=== PATIENT | female | born 1995 | race Caucasian/White ===

== ENCOUNTER 2022-06-10 16:34 | Day surgery (SDC) | payer OTHER, SELFPAY ==
--- NOTE | ~2022-06-10 | US_ITS ---
EXAMINATION: US OBSTETRICAL CLINICAL INFORMATION: Vaginal bleeding, positive test COMPARISON: None. TECHNIQUE: Real-time ultrasound was transverse abdominal and transvaginal imaging.. FINDINGS: The uterus is neutral in position. The endometrium measures 1.1 cm in thickness. There is no intrauterine gestational sac. The right ovary measures 3.9 x 1.8 x 3.9 cm, and the left ovary measures 3.2 x 3.5 x 2.1 cm. Left ovary is remarkable for an involuting hemorrhagic corpus luteum and ovaries are otherwise unremarkable in appearance. Adjacent to the right ovary is a 2.5 x 1.8 x 2.0 cm adnexal mass with internal vascularity suspicious for a ruptured ectopic . Other significant findings: Small amount of complex free fluid in the pelvis. US/US OB pelvic and transvaginal IMPRESSION: Small volume of complex free fluid in the pelvis raising suspicion for hemoperitoneum with a 2.5 cm vascular right adnexal mass suspicious for ruptured tubal ectopic . No intrauterine gestational sac is identified. These critical results were discussed with Dr. Ennis by telephone at 06/10/2022 8:48 PM and it was ascertained that the content and urgency of the report was understood at the time of direct communication.
[2022-06-10 16:38] VITALS: BP 145/76; PULSE 114; RESP 20; TEMP 36.7; O2SAT 100; BMI 29.4
--- NOTE | 2022-06-10 16:41 | ED.GENADULT ---
HPI - General Adult General Chief complaint: Vaginal Bleeding <VELASQUEZ Sherman - Last Filed: 06/10/22 16:41> Stated complaint: miscarriage/ month of bleeding/discomfort <VELASQUEZ Sherman - Last Filed: 06/10/22 16:41> Time Seen by Provider: 06/10/22 17:37 <VELASQUEZ Sherman - Last Filed: 06/10/22 16:41> Source: patient <Pepe Reed MD - Last Filed: 06/10/22 23:50> Mode of arrival: ambulatory <Pepe Reed MD - Last Filed: 06/10/22 23:50> Limitations: no limitations <Pepe Reed MD - Last Filed: 06/10/22 23:50> History of Present Illness HPI narrative: Patient usually have regular periods had last menstrual period end of the March lasted for few days. Started having vaginal bleeding again on 05/17 but continued small amount almost every day got heavier since last night with suprapubic discomfort patient check for the was positive. Patient denies any nausea vomiting breast tenderness. This is the 1st for the patient. No fever no chills no urinary complaints <Pepe Reed MD - Last Filed: 06/10/22 23:50> Related Data Allergies/adverse reactions: Allergies Allergy/AdvReac Type Severity Reaction Status Date / Time No Known Allergies Allergy Unverified 01/29/20 16:30 <VELASQUEZ Sherman - Last Filed: 06/10/22 16:41> Review of Systems Review of Systems: Yes all other systems are reviewed and are negative <Pepe Reed MD - Last Filed: 06/10/22 23:50> [facility] Social History Social History: Social History Smoked in Last 30 Days: No Use of substances other than those prescribed or required for medical reasons: Yes Substance Use Type: Marijuana Advance Directives: No Advance Directives Information Provided: No Patient : Yes <VELASQUEZ Sherman - Last Filed: 06/10/22 16:41> Physical Exam ED Vital Signs: Vital Signs - 24 hr 06/10/22 16:38 06/10/22 18:00 06/10/22 22:21 Temperature 98.0 F 98.5 F Pulse Rate 114 H 96 106 H Respiratory Rate 20 16 16 Blood Pressure 145/76 H 116/72 126/77 Pulse Oximetry 100 100 100 Oxygen Delivery Method Room Air Room Air BMI result Body Mass Index 29.4 <VELASQUEZ Sherman - Last Filed: 06/10/22 16:41> Vital Signs - 24 hr 06/10/22 16:38 06/10/22 18:00 06/10/22 22:21 Temperature 98.0 F 98.5 F Pulse Rate 114 H 96 106 H Respiratory Rate 20 16 16 Blood Pressure 145/76 H 116/72 126/77 Pulse Oximetry 100 100 100 Oxygen Delivery Method Room Air Room Air BMI result Body Mass Index 29.4 <Pepe Reed MD - Last Filed: 06/10/22 23:50> Appearance: Alert. Oriented X3. No acute distress. Eyes: No pallor or icterus ENT: Pharynx normal. Oral Mucosa moist Neck: Normal inspection. Neck supple. CVS: Normal heart rate and rhythm. Pulses normal. Respiratory: No respiratory distress. Equal air entry bilateral, no wheezing/rales/rhonchi Abdomen: Soft mild suprapubic tenderness no rebound tenderness or guarding Bowel sounds are present, no mass palpable, no CVA tenderness Skin: Skin warm and dry. Normal skin color. Normal skin turgor. Extremities: No lower extremity edema. No calf tenderness Neuro: Oriented X 3. No motor deficit. <Pepe Reed MD - Last Filed: 06/10/22 23:50> Course Course Course Narrative: RME performed by Gisel Olivas PA-C. Patient is a 26 year old female presenting to the emergency department with vaginal bleeding. Patient states that about a month ago she had a positive test and was bleeding. Patient states she assumed she was having a miscarriage then and has not had any follow up. Labs and imaging ordered. <VELASQUEZ Sherman - Last Filed: 06/10/22 16:41> Medical Decision Making Medical Decision Making [facility] Narrative: ;30 Patient with mild suprapubic tenderness with hCG of 430 ultrasound showed right adnexal mass with free fluid likely ruptured tubal patient H&H and vital stable case discussed Dr. Albino LIGHT, will come evaluate the patient 2200. Patient seen with Dr. Albino LIGHT will take patient to OR for laparoscopic laparotomy <Pepe Reed MD - Last Filed: 06/10/22 23:50> Lab Data MDM Lab Attestation statement: I reviewed the patient's lab results. <Pepe Reed MD - Last Filed: 06/10/22 23:50> Result Diagrams: 06/10/22 17:00 06/10/22 17:00 <VELASQUEZ Sherman - Last Filed: 06/10/22 16:41> Labs: Lab Results 06/10/22 06/10/22 06/10/22 Range/Units 17:00 17:00 17:00 WBC 8.8 (4.8-10.8) X10*3/uL RBC 3.94 L (4.20-5.50) X10*6/uL Hgb 12.2 (12.0-16.0) g/dl Hct 35.9 L (37.0-47.0) % MCV 91.1 (80.0-98.0) fL MCH 31.0 (27.0-33.0) pg MCHC 34.0 (31.0-35.0) g/dl RDW 12.5 (11.0-16.0) % Plt Count 261 (160-400) X10*3/uL MPV 10.2 (9.4-12.3) fL Immature Gran % (Auto) 0.8 H (0.0-0.4) % Neut % (Auto) 57.4 (45-73) % Lymph % (Auto) 34.9 (20-40) % [place] % (Auto) 5.9 (2-11) % Eos % (Auto) 0.3 (0-4) % Baso % (Auto) 0.7 (0-2) % Lymph # (Auto) 3.1 (1.2-4.9) X10*3/uL [place] # (Auto) 0.5 (0.1-1.2) X10*3/uL Eos # (Auto) 0.0 (0.0-0.4) X10*3/uL Baso # (Auto) 0.1 (0.0-0.2) X10*3/uL Abs Immat Gran (auto) 0.07 H (0.00-0.03) X10*3/uL Absolute Neuts (auto) 5.0 (2.0-8.3) x10*3/uL Absolute Nucleated RBC 0.000 (0.0-0.012) X10*3/uL Nucleated RBC % (auto) 0.0 (0.0-0.2) /100WBC PT 11.1 (10.0-13.1) SEC INR 1.0 (0.9-1.1) APTT 30.2 (26.0-36.4) SEC Sodium 142 (135-145) mmol/L Potassium 4.1 (3.3-5.1) mmol/L Chloride 106 (96-108) mmol/L Carbon Dioxide 27 (22-29) mmol/L Anion Gap 13 (12-20) BUN 11 (9-16) mg/dL Creatinine 0.85 (0.5-1.4) mg/dL Estim Creat Clear Calc 105.9 Estimated GFR > 60 Random Glucose 97 (60-115) mg/dL Calcium 9.9 (8.4-10.2) mg/dL Magnesium 1.9 (1.6-2.6) mg/dL Total Bilirubin 0.4 (0.0-1.0) mg/dL AST 16 (5-31) U/L ALT 13 (0-31) U/L Alkaline Phosphatase 57 (39-117) U/L Total Protein 7.4 (6.5-8.0) g/dL Albumin 4.6 (3.5-5.0) g/dL Beta HCG, Quant 430 mIU/mL Urine Color Urine Appearance Urine pH (5.0-9.0) Ur Specific [place] (1.005-1.025) Urine Protein (Neg-Trace) mg/dL Urine Glucose (UA) (Negative) mg/dL Urine Ketones (Negative) mg/dL Urine Blood (Negative) Urine Nitrite (Negative) Ur Leukocyte Esterase (Negative) Urine RBC (0-2) /HPF Urine WBC (0-5) /HPF Ur Squamous Epith Cells (0-2) /HPF Urine Bacteria (None Seen) Hyaline Casts (0-2) /LPF COVID-19 (SAMEER) (Negative) COVID-19 Clin Com Blood Type Antibody Screen 06/10/22 06/10/22 06/10/22 Range/Units 18:02 21:39 21:58 WBC (4.8-10.8) X10*3/uL RBC (4.20-5.50) X10*6/uL Hgb (12.0-16.0) g/dl Hct (37.0-47.0) % MCV (80.0-98.0) fL MCH (27.0-33.0) pg MCHC (31.0-35.0) g/dl RDW (11.0-16.0) % Plt Count (160-400) X10*3/uL MPV (9.4-12.3) fL Immature Gran % (Auto) (0.0-0.4) % Neut % (Auto) (45-73) % Lymph % (Auto) (20-40) % [place] % (Auto) (2-11) % Eos % (Auto) (0-4) % Baso % (Auto) (0-2) % Lymph # (Auto) (1.2-4.9) X10*3/uL [place] # (Auto) (0.1-1.2) X10*3/uL Eos # (Auto) (0.0-0.4) X10*3/uL Baso # (Auto) (0.0-0.2) X10*3/uL Abs Immat Gran (auto) (0.00-0.03) X10*3/uL Absolute Neuts (auto) (2.0-8.3) x10*3/uL Absolute Nucleated RBC (0.0-0.012) X10*3/uL Nucleated RBC % (auto) (0.0-0.2) /100WBC PT (10.0-13.1) SEC INR (0.9-1.1) APTT (26.0-36.4) SEC Sodium (135-145) mmol/L Potassium (3.3-5.1) mmol/L Chloride (96-108) mmol/L Carbon Dioxide (22-29) mmol/L Anion Gap (12-20) BUN (9-16) mg/dL Creatinine (0.5-1.4) mg/dL Estim Creat Clear Calc Estimated GFR Random Glucose (60-115) mg/dL Calcium (8.4-10.2) mg/dL Magnesium (1.6-2.6) mg/dL Total Bilirubin (0.0-1.0) mg/dL AST (5-31) U/L ALT (0-31) U/L Alkaline Phosphatase (39-117) U/L Total Protein (6.5-8.0) g/dL Albumin (3.5-5.0) g/dL Beta HCG, Quant mIU/mL Urine Color Other A Urine Appearance Clear Urine pH 6.5 (5.0-9.0) Ur Specific [place] 1.010 (1.005-1.025) Urine Protein Trace (Neg-Trace) mg/dL Urine Glucose (UA) Negative (Negative) mg/dL Urine Ketones 15 (Negative) mg/dL Urine Blood Large (3+) H (Negative) Urine Nitrite Negative (Negative) Ur Leukocyte Esterase Trace H (Negative) Urine RBC >20 H (0-2) /HPF Urine WBC 0-5 (0-5) /HPF Ur Squamous Epith Cells 0-2 (0-2) /HPF Urine Bacteria None Seen (None Seen) Hyaline Casts 0-2 (0-2) /LPF COVID-19 (SAMEER) Negative (Negative) COVID-19 Clin Com See Note Blood Type O Positive Antibody Screen NEGATIVE <VELASQUEZ Sherman - Last Filed: 06/10/22 16:41> Lab Results 06/10/22 06/10/22 06/10/22 Range/Units 17:00 17:00 17:00 WBC 8.8 (4.8-10.8) X10*3/uL RBC 3.94 L (4.20-5.50) X10*6/uL Hgb 12.2 (12.0-16.0) g/dl Hct 35.9 L (37.0-47.0) % MCV 91.1 (80.0-98.0) fL MCH 31.0 (27.0-33.0) pg MCHC 34.0 (31.0-35.0) g/dl RDW 12.5 (11.0-16.0) % Plt Count 261 (160-400) X10*3/uL MPV 10.2 (9.4-12.3) fL Immature Gran % (Auto) 0.8 H (0.0-0.4) % Neut % (Auto) 57.4 (45-73) % Lymph % (Auto) 34.9 (20-40) % [place] % (Auto) 5.9 (2-11) % Eos % (Auto) 0.3 (0-4) % Baso % (Auto) 0.7 (0-2) % Lymph # (Auto) 3.1 (1.2-4.9) X10*3/uL [place] # (Auto) 0.5 (0.1-1.2) X10*3/uL Eos # (Auto) 0.0 (0.0-0.4) X10*3/uL Baso # (Auto) 0.1 (0.0-0.2) X10*3/uL Abs Immat Gran (auto) 0.07 H (0.00-0.03) X10*3/uL Absolute Neuts (auto) 5.0 (2.0-8.3) x10*3/uL Absolute Nucleated RBC 0.000 (0.0-0.012) X10*3/uL Nucleated RBC % (auto) 0.0 (0.0-0.2) /100WBC PT 11.1 (10.0-13.1) SEC INR 1.0 (0.9-1.1) APTT 30.2 (26.0-36.4) SEC Sodium 142 (135-145) mmol/L Potassium 4.1 (3.3-5.1) mmol/L Chloride 106 (96-108) mmol/L Carbon Dioxide 27 (22-29) mmol/L Anion Gap 13 (12-20) BUN 11 (9-16) mg/dL Creatinine 0.85 (0.5-1.4) mg/dL Estim Creat Clear Calc 105.9 Estimated GFR > 60 Random Glucose 97 (60-115) mg/dL Calcium 9.9 (8.4-10.2) mg/dL Magnesium 1.9 (1.6-2.6) mg/dL Total Bilirubin 0.4 (0.0-1.0) mg/dL AST 16 (5-31) U/L ALT 13 (0-31) U/L Alkaline Phosphatase 57 (39-117) U/L Total Protein 7.4 (6.5-8.0) g/dL Albumin 4.6 (3.5-5.0) g/dL Beta HCG, Quant 430 mIU/mL Urine Color Urine Appearance Urine pH (5.0-9.0) Ur Specific [place] (1.005-1.025) Urine Protein (Neg-Trace) mg/dL Urine Glucose (UA) (Negative) mg/dL Urine Ketones (Negative) mg/dL Urine Blood (Negative) Urine Nitrite (Negative) Ur Leukocyte Esterase (Negative) Urine RBC (0-2) /HPF Urine WBC (0-5) /HPF Ur Squamous Epith Cells (0-2) /HPF Urine Bacteria (None Seen) Hyaline Casts (0-2) /LPF COVID-19 (SAMEER) (Negative) COVID-19 Clin Com Blood Type Antibody Screen 06/10/22 06/10/22 06/10/22 Range/Units 18:02 21:39 21:58 WBC (4.8-10.8) X10*3/uL RBC (4.20-5.50) X10*6/uL Hgb (12.0-16.0) g/dl Hct (37.0-47.0) % MCV (80.0-98.0) fL MCH (27.0-33.0) pg MCHC (31.0-35.0) g/dl RDW (11.0-16.0) % Plt Count (160-400) X10*3/uL MPV (9.4-12.3) fL Immature Gran % (Auto) (0.0-0.4) % Neut % (Auto) (45-73) % Lymph % (Auto) (20-40) % [place] % (Auto) (2-11) % Eos % (Auto) (0-4) % Baso % (Auto) (0-2) % Lymph # (Auto) (1.2-4.9) X10*3/uL [place] # (Auto) (0.1-1.2) X10*3/uL Eos # (Auto) (0.0-0.4) X10*3/uL Baso # (Auto) (0.0-0.2) X10*3/uL Abs Immat Gran (auto) (0.00-0.03) X10*3/uL Absolute Neuts (auto) (2.0-8.3) x10*3/uL Absolute Nucleated RBC (0.0-0.012) X10*3/uL Nucleated RBC % (auto) (0.0-0.2) /100WBC PT (10.0-13.1) SEC INR (0.9-1.1) APTT (26.0-36.4) SEC Sodium (135-145) mmol/L Potassium (3.3-5.1) mmol/L Chloride (96-108) mmol/L Carbon Dioxide (22-29) mmol/L Anion Gap (12-20) BUN (9-16) mg/dL Creatinine (0.5-1.4) mg/dL Estim Creat Clear Calc Estimated GFR Random Glucose (60-115) mg/dL Calcium (8.4-10.2) mg/dL Magnesium (1.6-2.6) mg/dL Total Bilirubin (0.0-1.0) mg/dL AST (5-31) U/L ALT (0-31) U/L Alkaline Phosphatase (39-117) U/L Total Protein (6.5-8.0) g/dL Albumin (3.5-5.0) g/dL Beta HCG, Quant mIU/mL Urine Color Other A Urine Appearance Clear Urine pH 6.5 (5.0-9.0) Ur Specific [place] 1.010 (1.005-1.025) Urine Protein Trace (Neg-Trace) mg/dL Urine Glucose (UA) Negative (Negative) mg/dL Urine Ketones 15 (Negative) mg/dL Urine Blood Large (3+) H (Negative) Urine Nitrite Negative (Negative) Ur Leukocyte Esterase Trace H (Negative) Urine RBC >20 H (0-2) /HPF Urine WBC 0-5 (0-5) /HPF Ur Squamous Epith Cells 0-2 (0-2) /HPF Urine Bacteria None Seen (None Seen) Hyaline Casts 0-2 (0-2) /LPF COVID-19 (SAMEER) Negative (Negative) COVID-19 Clin Com See Note Blood Type O Positive Antibody Screen NEGATIVE <Pepe Reed MD - Last Filed: 06/10/22 23:50> Radiology Impression Discussion of test interpretation with radiology: I discussed test interpretation with the radiologist <Pepe Reed MD - Last Filed: 06/10/22 23:50> Radiologist Impression: Small volume of complex free fluid in the pelvis raising suspicion for hemoperitoneum with a 2.5 cm vascular right adnexal mass suspicious for ruptured tubal ectopic . No intrauterine gestational sac is identified. ? <Pepe Reed MD - Last Filed: 06/10/22 23:50> Discharge Plan Discharge Clinical Impression: Hemoperitoneum due to rupture of right tubal ectopic <VELASQUEZ Sherman - Last Filed: 06/10/22 16:41> Patient Disposition: Admitted As Inpatient <VELASQUEZ Sherman - Last Filed: 06/10/22 16:41>
[2022-06-10 17:05] LABS: MANUAL DIFF FLAG NO
[2022-06-10 17:19] LABS: Prothrombin Time 11.1 SEC (10.0-13.1)
[2022-06-10 17:22] LABS: Partial Thromboplastin Time 30.2 SEC (26.0-36.4)
[2022-06-10 17:28] LABS: Basophils Absolute Auto 0.1 X10*3/uL (0.0-0.2); Basophils Percent Auto 0.7 % (0-2); Eosinophils Percent Auto 0.3 % (0-4); Hematocrit 35.9 % (37.0-47.0); Hemoglobin 12.2 g/dl (12.0-16.0); Imm Gran Abs Auto 0.07 X10*3/uL (0.00-0.03); Imm Gran Pct Auto 0.8 % (0.0-0.4); Lymphocytes Absolute Auto 3.1 X10*3/uL (1.2-4.9); Lymphocytes Percent Auto 34.9 % (20-40); Mean Corpuscular Volume 91.1 fL (80.0-98.0); Mean Platelet Volume 10.2 fL (9.4-12.3); Monocytes Absolute Auto 0.5 X10*3/uL (0.1-1.2); Monocytes Percent Auto 5.9 % (2-11); Neutrophils Percent Auto 57.4 % (45-73); Platelet Count 261 X10*3/uL (160-400); Red Blood Count 3.94 X10*6/uL (4.20-5.50); Red Cell Distribution Width 12.5 % (11.0-16.0); White Blood Count 8.8 X10*3/uL (4.8-10.8)
[2022-06-10 17:31] LABS: Alanine Aminotransferase 13 U/L (0-31); Albumin Level 4.6 g/dL (3.5-5.0); Alkaline Phosphatase 57 U/L (39-117); Anion Gap 13 (12-20); Aspartate Amino Transferase 16 U/L (5-31); Bilirubin Total 0.4 mg/dL (0.0-1.0); Blood Urea Nitrogen 11 mg/dL (9-16); Calcium 9.9 mg/dL (8.4-10.2); Carbon Dioxide 27 mmol/L (22-29); Chloride 106 mmol/L (96-108); Creatinine Clr Calc Pharmacy 105.9; Estimated Glomerular Filt Rate > 60; Glucose Random 97 mg/dL (60-115); Magnesium 1.9 mg/dL (1.6-2.6); Potassium 4.1 mmol/L (3.3-5.1); Sodium 142 mmol/L (135-145); Total Protein 7.4 g/dL (6.5-8.0)
[2022-06-10 17:32] LABS: HCG Quantitative 430 mIU/mL
[2022-06-10 18:00] VITALS: BP 116/72; PULSE 96; RESP 16; TEMP 36.9; O2SAT 100
--- NOTE | 2022-06-10 18:03 | MHC.EDTECH ---
patient 1800 vitals sign taken ,urine sample send to lab .
[2022-06-10 18:14] LABS: Appearance Urine Clear; Color Urine Other; Glucose Urine UA Negative (Negative); PH 6.5 (5.0-9.0); Urine Blood Large (3+) (Negative)
[2022-06-10 18:15] LABS: Leukocyte Esterase Urine Trace (Negative); Nitrite Urine Negative (Negative); UMIC TRIGGER UACC YES; Urine Ketones 15 mg/dL (Negative); Urine Protein Trace mg/dL (Neg-Trace)
[2022-06-10 18:16] LABS: Bacteria Urine None Seen (None Seen); Hyaline Casts Urine 0-2 /LPF (0-2); RBC Urine >20 /HPF (0-2); Squamous Epithelial Cell Urine 0-2 /HPF (0-2); WBC Urine 0-5 /HPF (0-5)
[2022-06-10 22:15] LABS: COVID-19 Test Negative (Negative); IDNOW Serial# 9DB6401D
[2022-06-10 22:21] VITALS: BP 126/77; PULSE 106; RESP 16; O2SAT 100
--- NOTE | 2022-06-10 22:37 | PM.GYNCN ---
TRANSCRIPTION COORDINATOR - CN: HPI Data of Consult Consult date: 06/10/22 Primary Care Provider: Guero Kirby MD Consult Narrative Narrative: I was consulted on Sarah Appiah who is a 26 year old female presented to emergency room complaining of vaginal bleeding and pelvic cramping more on the right. Patient's LMP was end of March, the patient started having vaginal bleeding early May, had a positive home test , since then she has been having vaginal bleeding associated with pelvic cramping and passage of blood clots. H&H 12.3/35.9, hCG 430, blood type is O-positive cc:: CC: CAFETERIA OR LUNCHROOM CHECKER - Review of Systems Review of Systems ROS Unobtainable: All systems reviewed & are unremarkable except as noted in HPI and below Cardiovascular: Denies Palpatations, Loss of consciousness or Chest pain Respiratory: Denies Cough, Wheezing or Shortness of breath Musculoskeletal: Denies Low back pain Gastrointestinal: Denies Heartburn, Constipation, Diarrhea, Nausea or Vomiting Genitourinary: Denies Pain with urination, Burning with urination or Urinary frequency Neurological: Denies Migranes Psychological: Denies Depression OB PMFSH Social History Social History Substance Use Type: Marijuana Meds Allergies Allergy/AdvReac Type Severity Reaction Status Date / Time No Known Allergies Allergy Unverified 01/29/20 16:30 TRANSCRIPTION COORDINATOR Physical Exam Vitals Vital signs: Temp Pulse Resp BP Pulse Ox O2 Del Method 98.5 F 106 H 16 126/77 100 06/10/22 18:00 06/10/22 22:21 06/10/22 22:21 06/10/22 22:21 06/10/22 22:21 06/10/22 22:21 BMI result Body Mass Index 29.4 Constitutional General Appearance: Healthy appearing, Well-nourished and Well-developed Psychiatric Mood and Affect: active and alert, normal mood and normal affect Skin Appearance: No rashes and No lesions Lungs Respiratory Effort: No intercostal retractions Auscultation: Clear to auscultation Cardiovascular Auscultation: RRR Abdomen Auscultation/Inspection/Palpation: Normal bowel sounds, Non-distended, Tenderness (Right-sided tenderness and minimal regarding) and Guarding Female Genitalia (Pelvic) Bladder/Urethra: Normal meatus Vulva: No lesions Vagina: Nontender Cervix: Cervical motion tenderness Uterus: Normal size and Nontender Adnexa/Parametria: Adnexal Tenderness: Right and Adnexal Mass: Right TRANSCRIPTION COORDINATOR - Results Labs 06/10/22 17:00 06/10/22 17:00 Labs: Short CBC 06/10/22 Range/Units 17:00 WBC 8.8 (4.8-10.8) X10*3/uL Hgb 12.2 (12.0-16.0) g/dl Hct 35.9 L (37.0-47.0) % Plt Count 261 (160-400) X10*3/uL BMP 06/10/22 17:00 Sodium 142 Potassium 4.1 Chloride 106 Carbon Dioxide 27 BUN 11 Creatinine 0.85 Calcium 9.9 Liver Function 06/10/22 Range/Units 17:00 Total Bilirubin 0.4 (0.0-1.0) mg/dL AST 16 (5-31) U/L ALT 13 (0-31) U/L Alkaline Phosphatase 57 (39-117) U/L Albumin 4.6 (3.5-5.0) g/dL Urine 06/10/22 Range/Units 18:02 Urine Color Other A Urine Appearance Clear Urine pH 6.5 (5.0-9.0) Ur Specific [place] 1.010 (1.005-1.025) Urine Protein Trace (Neg-Trace) mg/dL Urine Glucose (UA) Negative (Negative) mg/dL Imaging US - abdomen: Radiologist's impression: ITS Impressions Pelvic/Transvag US 06/10/22 19:35 IMPRESSION: Small volume of complex free fluid in the pelvis raising suspicion for hemoperitoneum with a 2.5 cm vascular right adnexal mass suspicious for ruptured tubal ectopic . No intrauterine gestational sac is identified. These critical results were discussed with Dr. Ennis by telephone at 06/10/2022 8:48 PM and it was ascertained that the content and urgency of the report was understood at the time of direct communication. Assessment and Plan (1) Ectopic , tubal: Status: Acute Plan GC and chlamydia, BV panel and Trichomonas sent Discussed with the patient the ultrasound finding showing a right 2.5 cm vascular adnexal mass and a small volume of hemoperitoneum suspicious of ruptured ectopic . Discussed with the patient with the low level of hCG, there is a possibility of early intrauterine with either a viable or a threatened with right adnexal cyst. Recommended diagnostic laparoscopy, possible salpingostomy/ partial salpingectomy, possible laparotomy. All the pros and cons were discussed with the patient including the risks including but not limited to: Risk of bleeding, infection, possible injury to bladder, bowel, ureter, bladder, possible injury to vessels and need for blood transfusion with all its risks including HIV, hepatitis-B and C and other blood borne pathogens, possible negative impact on future fertility. In addition, discussed the patient the possibility of false of diagnosis of tubal was a possibility of undiagnosed early intrauterine with adnexal cyst. Explained to the patient alternatives including expectant management and methotrexate treatment. All pros and cons, risks and benefits of each were discussed with the patient, the patient decided to proceed with diagnostic laparoscopy possible salpingostomy, partial or total salpingectomy. All questions answered, the patient verbalized understanding agreed with the plan and signed the consent. Time Spent With Patient Time: Total time managing care of this patient today ____ minutes.
--- NOTE | 2022-06-10 22:49 | P.CONAN_ITS ---
[facility] Active Problems Active Problems: All Active Problems (Updated 06/10/22 @ 22:38 by Pepe Reed MD) Hemoperitoneum due to rupture of right tubal ectopic (Acute) Past Medical History Functional capacity: independent ambulation Patient : Yes Surgical History History of Problems with Anesthesia: Unobtainable Social History Social History Smoked in Last 30 Days: No Use of substances other than those prescribed or required for medical reasons: Yes Substance Use Type: Marijuana Advance Directives: No Advance Directives Information Provided: No Patient : Yes Meds Allergies Allergy/AdvReac Type Severity Reaction Status Date / Time No Known Allergies Allergy Unverified 01/29/20 16:30 Exam Exam Date and Time: June 10, [id number] Height,Weight and Vital Signs: Height 5 ft 5 in Weight 80.286 kg Last Vital Signs Temp 98.5 F 06/10/22 18:00 Pulse 106 H 06/10/22 22:21 Resp 16 06/10/22 22:21 BP 126/77 06/10/22 22:21 Pulse Ox 100 06/10/22 22:21 O2 Del Method 06/10/22 22:21 Pertinent Lab Results Pertinent Lab Results: Laboratory Tests 06/10/22 06/10/22 06/10/22 17:00 17:00 17:00 WBC 8.8 RBC 3.94 L Hgb 12.2 Hct 35.9 L MCV 91.1 MCH 31.0 MCHC 34.0 RDW 12.5 Plt Count 261 MPV 10.2 Immature Gran % (Auto) 0.8 H Neut % (Auto) 57.4 Lymph % (Auto) 34.9 [place] % (Auto) 5.9 Eos % (Auto) 0.3 Baso % (Auto) 0.7 Lymph # (Auto) 3.1 [place] # (Auto) 0.5 Eos # (Auto) 0.0 Baso # (Auto) 0.1 Abs Immat Gran (auto) 0.07 H Absolute Neuts (auto) 5.0 Absolute Nucleated RBC 0.000 Nucleated RBC % (auto) 0.0 PT 11.1 INR 1.0 APTT 30.2 Sodium 142 Potassium 4.1 Chloride 106 Carbon Dioxide 27 Anion Gap 13 BUN 11 Creatinine 0.85 Estim Creat Clear Calc 105.9 Estimated GFR > 60 Random Glucose 97 Calcium 9.9 Magnesium 1.9 Total Bilirubin 0.4 AST 16 ALT 13 Alkaline Phosphatase 57 Total Protein 7.4 Albumin 4.6 Beta HCG, Quant 430 Urine Color Urine Appearance Urine pH Ur Specific [place] Urine Protein Urine Glucose (UA) Urine Ketones Urine Blood Urine Nitrite Ur Leukocyte Esterase Urine RBC Urine WBC Ur Squamous Epith Cells Urine Bacteria Hyaline Casts COVID-19 (SAMEER) COVID-19 Clin Com Blood Type Antibody Screen 06/10/22 06/10/22 06/10/22 18:02 21:39 21:58 WBC RBC Hgb Hct MCV MCH MCHC RDW Plt Count MPV Immature Gran % (Auto) Neut % (Auto) Lymph % (Auto) [place] % (Auto) Eos % (Auto) Baso % (Auto) Lymph # (Auto) [place] # (Auto) Eos # (Auto) Baso # (Auto) Abs Immat Gran (auto) Absolute Neuts (auto) Absolute Nucleated RBC Nucleated RBC % (auto) PT INR APTT Sodium Potassium Chloride Carbon Dioxide Anion Gap BUN Creatinine Estim Creat Clear Calc Estimated GFR Random Glucose Calcium Magnesium Total Bilirubin AST ALT Alkaline Phosphatase Total Protein Albumin Beta HCG, Quant Urine Color Other A Urine Appearance Clear Urine pH 6.5 Ur Specific [place] 1.010 Urine Protein Trace Urine Glucose (UA) Negative Urine Ketones 15 Urine Blood Large (3+) H Urine Nitrite Negative Ur Leukocyte Esterase Trace H Urine RBC >20 H Urine WBC 0-5 Ur Squamous Epith Cells 0-2 Urine Bacteria None Seen Hyaline Casts 0-2 COVID-19 (SAMEER) Negative COVID-19 Clin Com See Note Blood Type O Positive Antibody Screen NEGATIVE Airway Mallampati Class: II TM Dist: >3cm Neck ROM: Full Heart: RRR Lungs: CTA Assessment and Plan Final Anesthetic Review History of Problems with Anesthesia: Unobtainable NPO: No ASA Class: II Final Preanesthetic Review: Meds/Allgs Chart Reviewed, Consent Obtained/Reviewed and Anes Risks/Benef Reviewed Patient Risk: Low Procedure Risk: Low Anesthetic Plan Anesthetic Plan: GA Disposition: Standard PACU
--- NOTE | 2022-06-10 23:32 | PC.NURSE ---
iv placed r and l arms. blood work obtained. this rn present for pelvic exam with dr duran. type and screen completed. report called to or. jewelry removed belongings secured with boyfriend
--- NOTE | 2022-06-11 00:43 | P.BOP_ITS ---
Brief Operative Note Date of Service: 06/11/22 Pre-op diagnosis: Right tubal ectopic with hemoperitoneum Post-op diagnosis: same ( with 100 cc of hemoperitoneum) Procedure: Laparoscopic right partial salpingectomy with hemoperitoneum Surgeon: Fish Posada MD Anesthesia: GETA Was an Mixing Roll Operator used for this Procedure?: No Estimated blood loss (mL): 0 Pathology: other (Right partial fallopian tube with ectopic ) Condition: stable Disposition: PACU
--- NOTE | 2022-06-11 00:44 | W.PM.OPN ---
Operative Note Operative Note Date of Service: 06/11/22 Narrative: PREOPERATIVE DIAGNOSIS:?R tubal ectopic with hemoperitoneum POSTOPERATIVE DIAGNOSIS:?Right ecotpic filling up most of the tubal length with Pressure/distension discoloration, 100 cc of hemoperitoneum Procedure: laparoscopic Right partial salpingectomy annual vacuo a veronica of 100 cc of Hemoperitoneum QBL: Minimal Anesthesia: GETA SURGEON:? Fish Posada MD?? Shop Mechanic:None Complications: None Pathology: Right partial Fallopian tubes? DESCRIPTION OF PROCEDURE:?The patient was taken to the OR where general anesthesia was easily obtained. The patient was then prepped and draped in a sterile fashion and placed in dorsal lithotomy position. A speculum was introduced into the patient?s vagina for cervical visualization. A single-tooth tenaculum was used to grasp the anterior lip of the cervix and Humi uterine manipulator was inserted inserted insert intrauterine cavity after sounding the uterine cavity and adjusting the length of the uterine manipulator. The single tooth tenaculum was then removed and hemostasis was assured?using pressure. A Browne catheter?was inserted and clear urine started draining. Gloves were changed to clean ones. Attention was then drawn to the abdomen where a 10 mm longitudinal incision was done intra umbilical and carried down all the way to the fascia, which was tented?up using 2 Donis clamps and was nicked in the midline and then extended on both end of the incision?, them using 2 pick?ups the peritoneum?was entered with Metzenbaum scissors and under direct visualization, a 10 mm Asher trocar was introduced into the patient?s abdomen. Once intraperitoneal placement was confirmed with direct visualization, pneumoperitoneum was started & was easily obtained.Then, two fingerbreadths above the pubic symphysis and towards the?right lower quadrant, under direct visualization, a 5 mm trocar was then introduced into the patient?s abdomen. and a 3rd one on the left?lower quadrant was placed?in a similar manner. The patient was placed in Trendelenburg position, Inspection revealed right tubal filling up most of the right tube with discoloration and 100 cc of hemoperitoneum, normal bilateral ovaries and normal left fallopian tube. Attention was then drawn to the Right fallopian tube. Since most of the right tube was filled up with the ectopic with pressure discoloration from the distension, the decision was made to proceed with partial salpingectomy instead of salpingostomy. The IP ligament was identified and fallopian tube was then grasped by the fimbria and incised from the mesosalpinx using ligasure device, using cautery for hemostasis and cutting afterwards a bite at a time all the way to the area medial to the edge of the ectopic of the right fallopian tube. Good hemostasis was noted from the right fallopian tube sites and the operative site. Specimen were then removed from the patient?s abdomen using endocatch from the 10 mm trocar through the umbilicus. Then using the suction rental clerk tool and equipment evacuation of 100 cc of hemoperitoneum was done. Copious irrigation was done. Once good hemostasis was noted from the patient?s abdomen, pneumoperitoneum was deflated and all trocars were removed. Infraumbilical fascia was closed with 0 Vicryl and interrupted suture. The skin was closed with 4-0 Vicryl. The Right and left?lower quadrant ports were closed with 0 Vicryl. Bupivicaine 0.25 10 cc were injected subcuticularly in the 3 incisions. Then speculum was put back in the vagina inspection revealed?hemostasis at the site of the tenaculum, the?sponge stick was removed?from the patient's vagina and Browne was draining clear urine was taken out too. Sponge, lap and needle counts were correct x2. The patient was taken to the recovery room in stable condition.
[2022-06-11 00:56] VITALS: BP 121/53; PULSE 91; RESP 16; TEMP 36.4; O2SAT 99
[2022-06-11 01:01] VITALS: BP 113/64; PULSE 68; RESP 11; O2SAT 100
[2022-06-11 01:06] VITALS: BP 109/58; PULSE 66; RESP 10; O2SAT 99
[2022-06-11 01:11] VITALS: BP 117/59; PULSE 78; RESP 12; O2SAT 99
--- NOTE | 2022-06-11 01:11 | HO.POSTANES ---
Post Anesthesia Evaluation Post Anesthesia Evaluation Vital Signs: Vital Signs Temp Pulse Resp BP Pulse Ox O2 Del Method O2 Flow Rate 06/11/22 01:06 66 10 L 109/58 L 99 Nasal Cannula 2 06/11/22 01:01 68 11 L 113/64 100 Nasal Cannula 2 06/11/22 00:56 97.6 F 91 16 121/53 L 99 Nasal Cannula 2 06/10/22 22:21 106 H 16 126/77 100 Room Air 06/10/22 18:00 98.5 F 96 16 116/72 100 Room Air 06/10/22 16:38 98.0 F 114 H 20 145/76 H 100 Anesthesia: General Endotracheal-GETA Mental Status: Awake Pain Control: Satisfactory Nausea/Vomiting: None Hydration: Adequate Anesthesia-Related Issues: No Anes. Related Issues
[2022-06-11] MEDS: Acetaminophen 1,000 MG/100 ML PIGGYBACK 400 MG IV (01:15)
[2022-06-11] MEDS: oxyCODONE HCl Immed Release 5 MG TABLET PO (01:17)
[2022-06-11 01:26] VITALS: BP 117/59; PULSE 72; RESP 15; O2SAT 100
[2022-06-11 01:41] VITALS: BP 119/60; PULSE 69; RESP 14; TEMP 36.6; O2SAT 100
[2022-06-11 10:59] LABS: CT PCR NOT DETECTED (Not Detect.); NG PCR NOT DETECTED (Not Detect.)
[2022-06-12 13:39] LABS: BV Int Neg Control Negative (Negative); BV Int Pos Control Positive (Positive)
== END 2022-06-10 23:28 ==
LOC: HO.ED 22:38 → HO.SSS 23:45
PROVIDERS: Physician Assistant Medical; Emergency Provider Internal Medicine; PCP Internal Medicine; Visit Provider Obstetrics & Gynecology
PROC: (CPT 49320; principal; 2022-06-10 11:00)
DX: O00.101 Right tubal pregnancy without intrauterine pregnancy (principal)
CPT/HCPCS: 59151; 0353U; 36415; 76801; 76817; 80053; 81001; 83735; 84702; 85025; 85610; 85730; 86850; 86900; 86901; 87480; 87510; 87635; 87660; 88302; 88305; 99285; J0131; J1100; J1885; J2250; J2405; J2795; J3010

== ENCOUNTER 2022-06-19 10:35 | Outpatient (REF) | payer OTHER, SELFPAY ==
[2022-06-19 12:17] LABS: UPreg QC Valid YES; Urine Pregnancy NEGATIVE (NEGATIVE)
== END 2022-06-19 10:36 | disposition home or self-care (01) ==
LOC: HO.LAB 10:35
PROVIDERS: PCP Internal Medicine; Visit Provider Obstetrics & Gynecology
DX: Z32.02 Encounter for pregnancy test, result negative (principal)
CPT/HCPCS: 81025

== ENCOUNTER 2022-08-01 11:28 | Outpatient (REF) | payer OTHER, SELFPAY ==
[2022-08-01 14:06] LABS: HCG Quantitative < 2 mIU/mL
[2022-08-02 09:35] LABS: CT PCR NOT DETECTED (Not Detect.); NG PCR NOT DETECTED (Not Detect.)
== END 2022-08-01 11:29 | disposition home or self-care (01) ==
LOC: HO.LAB 11:28
PROVIDERS: PCP Internal Medicine; Visit Provider Obstetrics & Gynecology
DX: O00.109 Unspecified tubal pregnancy without intrauterine pregnancy (principal); Z20.2 Contact with and (suspected) exposure to infections with a predominantly sexual mode of transmission
CPT/HCPCS: 0353U; 36415; 84702

== ENCOUNTER 2022-08-01 12:20 | Outpatient (REF) | payer OTHER, SELFPAY | END 2022-08-01 12:21 | disposition home or self-care (01) | LOC: HO.LNP 12:20 | PROVIDERS: Visit Provider Obstetrics & Gynecology | DX: Z01.419 Encounter for gynecological examination (general) (routine) without abnormal findings (principal) | CPT/HCPCS: 88142 ==

== ENCOUNTER 2023-08-21 11:29 | Outpatient (AMB) | payer OTHER, SELFPAY ==
[2023-08-21 11:52] VITALS: BP 90/58; BMI 24.4
--- NOTE | 2023-08-21 11:52 | MHC.OFFVIS ---
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 No complaints. Last Pap smear was negative on 08/03 [facility] Medical History Ectopic Family History Mother Diabetes Social History Household Members: Significant Other and Family Housing: House Alcohol intake: never Patient Tobacco Use Status: Never used Tobacco e-Cigarette/Vaping Use: Currently Using Substance Use Type: Marijuana service: No Current occupational status: employed Sexual orientation: Straight/Heterosexual Gender identity: Female Female Reproductive History Menstrual Age of Menarche: 13 Duration of menses: 6-7 days Date of last menstrual period: 08/08/23 control method: condoms Total pregnancies: 1 Ab spontaneous: 1 Date of last pap smear: 08/02/22 (negative) Review of Systems Const All systems reviewed & are unremarkable except as noted in HPI and below Card Reports as per HPI Resp Reports as per HPI GI Reports as per HPI and Reports no additional complaints Reports as per HPI Physical Exam Vital Signs: Last Vital Signs BP 90/58 L 08/21/23 11:52 BMI result Body Mass Index 24.4 Const General: cooperative, healthy appearing and comfortable Chest Chest palpation & inspection: normal inspection of the chest and normal palpation of entire chest wall Breast/axilla inspection: normal inspection of the breasts and normal inspection of the axillae Breast/axilla palpation: normal palpation of the breasts, normal palpation of the axillae and no axillary lymphadenopathy Resp Effort & Inspection: normal respiratory effort Auscultation: clear to auscultation bilaterally Percussion: percussion normal Cardio Palpation: normal PMI Rate: regular rate Rhythm: regular rhythm Heart sounds: no murmurs and no rubs Peripheral pulses: Peripheral pulses 2+ throughout GI Inspection: Yes normal to inspection Palpation (GI): Soft to palpation, nontender, no guarding, not rigid and No hepatosplenomegaly present Percussion: Yes normal to percussion Auscultation: normal bowel sounds Rectal Exam - Female: deferred General: Yes bladder normal to palpation External Female Exam: No lesion Speculum Exam - Vagina: normal appearance of the vagina, normal palpation, normal vaginal discharge and not erythematous Speculum Exam - Cervix: normal appearance of the cervix and normal palpation Bimanual exam- vagina & uterus: normal bimanual exam, normal palpation, uterine size normal, bladder normal to palpation, consistency normal and normal palpation Bimanual Exam- Adnexa, other: normal adnexae, no masses and no tenderness Assessment & Plan Assessment & Plan (1) Well woman exam: Code(s): Z01.419 - Encounter for gynecological examination (general) (routine) without abnormal findings Plan: Pap smear is not indicated this year. Discussed with the patient the risk of ectopic recurrence and Instructed the patient to call once she has a positive test for an early hCG monitoring to rule out recurrent ectopic given her history of ectopic in the past. Counseled the patient about the recommended dietary allowance of 1000 mg of Calcium & 600 IU of vitamin D. The patient was instructed to perform monthly self-breast exams and to schedule an annual exam in a year; All questions answered and the patient verbalized understanding. Instructed the patient to schedule annual exam in a year Coding Level of Care Code Est Pt Prev Care 18-39y([id number]) Diagnoses Well woman exam Z01.419
== END 2023-08-21 12:21 | disposition home or self-care (01) ==
LOC: HO.HWS 11:29
PROVIDERS: PCP Internal Medicine; Visit Provider Obstetrics & Gynecology
DX: Z01.419 Encounter for gynecological examination (general) (routine) without abnormal findings (principal)
CPT/HCPCS: 99395

== ENCOUNTER → 2023-08-21 11:29 | Outpatient (BNVA) | payer OTHER, SELFPAY | PROVIDERS: PCP Internal Medicine; Visit Provider Obstetrics & Gynecology ==